=== PATIENT | male | born 1995 | race African-American/Black ===

== ENCOUNTER 2020-01-08 13:40 | Emergency (ER) | payer MEDICAID ==
[2020-01-08] MEDS ORDERED: MORPHINE SULFATE 4 MG INJ IV ONE (14:00)
[2020-01-08] MEDS ORDERED: Zofran 4 MG/2 ML VIAL IV ONE (14:00)
[2020-01-08] MEDS ORDERED: Sodium Chloride 0.9% 1000 ML 1,000 ML IV STA (14:00)
[2020-01-08] MEDS ORDERED: Zofran 4 MG/2 ML VIAL ONE (14:07)
[2020-01-08] MEDS ORDERED: MORPHINE SULFATE 4 MG INJ ONE (14:08)
[2020-01-08] MEDS ORDERED: Sodium Chloride 0.9% 1000 ML 1,000 ML ONE (14:08)
[2020-01-08 15:04] LABS: Basophil (Absolute #) 0 (0-0.4); Eosinophil % 0.3 % (0.00-5.0); Eosinophil (Absolute #) 0.05 (0-0.5); Hemoglobin 16.2 gm/dl (12.5-18.0); Lymphocyte (Absolute #) 0.84 (1.0-4.6); Lymphocytes % 5.3 % (24.0-44.0); Mean Cell Volume 88.3 fl (78-100); Mean Corpuscular Hemoglobin 30.5 pg (26-32); Mean Corpuscular Hgb Concent. 34.5 g/dl (32-36); Mean Platelet Volume 10.8 fl (7.5-11.0); Monocyte (Absolute #) 0.73 (0.0-1.3); Monocytes % 4.6 % (0.0-12.0); Neutrophil % 89.8 % (36.0-66.0); Platelet Count 185 K/mm3 (150-450); Red Blood Count 5.32 M/mm3 (4.1-5.6); Red Cell Distribution Width 12.9 % (11.5-14.0); White Blood Count 15.8 K/mm3 (4.0-10.5)
[2020-01-08 15:10] LABS: Appearance CLEAR (CLEAR); Bilirubin NEGATIVE (NEGATIVE); Blood NEGATIVE Ery/ul (0-5); Glucose NEGATIVE (NEGATIVE); Ketones TRACE (NEGATIVE); Leukocyte Esterase NEGATIVE (NEGATIVE); Mucus SLIGHT /HPF (NEGATIVE); Nitrite NEGATIVE (NEGATIVE); Protein,Urine Dip NEGATIVE (Negative); RBC 0-2 /HPF (0-2); Specific Gravity 1.021 (1.005-1.025); Urobilinogen NEGATIVE mg/dL (0-1)
[2020-01-08 15:14] LABS: ALBUMIN 4.9 g/dL (3.5-5.0); ALKALINE PHOSPHATASE 57 U/L (38-126); AMYLASE 70 U/L (30-110); ANION GAP 18.9 MEQ/L (5-15); BLOOD UREA NITROGEN 12 mg/dL (9-20); CHLORIDE 103 mmol/L (98-107); Calcium 10.3 mg/dL (8.4-10.2); Carbon Dioxide 22 mmol/L (22-30); Glucose 123 mg/dL (74-106); LIPASE 48 U/L (23-300); Potassium 3.9 mmol/L (3.5-5.1); SGOT/AST 30 U/L (17-59); SGPT/ALT 20 U/L (0-50); SODIUM 140 mmol/L (137-145); Total Protein 8.4 g/dL (6.3-8.2)
--- NOTE | 2020-01-08 15:25 | XRAY ---
Indication: Left abdomen pain. Multiple contiguous axial images obtained through the abdomen and pelvis using 80 cc Isovue 370 contrast only. Comparison: None Lung bases are clear. Heart is not enlarged. Initial portal phase images are degraded by respiration and motion artifact. Noncontrasted stomach and bowel loops appear nonobstructed. Mild scattered radiopacities in the stomach and small bowel loops either ingested medication, bismuth, or barium. Normal appendix. No free fluid/air. Remaining liver, gallbladder, pancreas, spleen, adrenal glands, kidneys, ureters, bladder, and aorta appear normal in CT appearance and attenuation. No pathologic retroperitoneal lymphadenopathy. Osseous structures intact. No ventral or inguinal hernias. Impression: Respiration and motion artifact. Negative CT abdomen/pelvis with contrast exam.
[2020-01-08 16:06] VITALS: BP 157/74; PULSE 88; O2SAT 99
--- NOTE | 2020-01-08 16:25 | ERPHSYRPT ---
- History of Present Illness Time Seen by Provider: 01/08/20 14:19 Historian: patient Exam Limitations: no limitations Patient Subjective Stated Complaint: Pain in the LLQ that began today Triage Nursing Assessment: Pt brought to the ER by EMS, pain with palpatation to the mid abdomen, hypertensive, diarrhea, N&V, rates pain as a 1/10 but then pain comes and it's a 7/10, holding abdomen, bowel sounds heard in all 4 quadrants Physician History: 24 years old generally healthy male presented in the ER with chief complaint of sudden onset periumbilical pain almost 2 hours prior to arrival. Patient report he woke up, was feeling nauseated and force himself to take a bowl of cereal and vomited couple of times, nonprojectile, nonbilious with no hematemesis. Later on pain got worse and had 3-4 episodes of loose foul- smelling bowel movements prior to arrival. Patient reports sharp cramping pain more in the periumbilical area with some radiation to bilateral lower quadrants , aggravated with movements palpation and feeling better after EMS gave fentanyl on the way to the ER . Currently pain is 2-3/10 intensity. Denies fever or chills. Denies any sick contact. Patient report he had some chicken strips yesterday which could be the reason for his pain. Timing/Duration: today, hour(s) (2), intermittent, improved Activities at Onset: rest Quality: cramping, sharpness Abdominal Pain Onset Location: RLQ, LLQ, periumbilical Pain Radiation: RLQ, LLQ Severity of Pain-Max: severe Severity of Pain-Current: mild Modifying Factors: Improves With: palpation Associated Symptoms: diarrhea, nausea, vomiting, No fever/chills Previous symptoms: no prior history Allergies/Adverse Reactions: No Known Drug Allergies Allergy (Unverified 01/08/20 13:58) Travel Risk - International Travel Have you traveled outside of the country in past 3 weeks: No Have you or anyone close to you been diagnosed with or: No Do your reside in a community with a known COVID-19 case?: Yes If Yes where:: [place] - Coronavirus Screening Has patient experienced Coronavirus symptoms: No - Review of Systems Constitutional: No Symptoms Eyes: No Symptoms Ears, Nose, & Throat: No Symptoms Respiratory: No Symptoms Cardiac: No Symptoms Abdominal/Gastrointestinal: Abdominal Pain, Nausea, Vomiting, Diarrhea Genitourinary Symptoms: No Symptoms Musculoskeletal: No Symptoms Skin: No Symptoms Neurological: No Symptoms Psychological: No Symptoms Endocrine: No Symptoms Hematologic/Lymphatic: No Symptoms Immunological/Allergic: No Symptoms - Past Medical History Pertinent Past Medical History: No - Past Surgical History Past Surgical History: No - Social History Smoking Status: Current every day smoker Exposure to second hand smoke: Yes Drug Use: marijuana Patient Lives Alone: No - Nursing Vital Signs Nursing Vital Signs: Initial Vital Signs Temperature 98.0 F 01/08/20 13:44 Pulse Rate 62 01/08/20 13:44 Blood Pressure 144/77 01/08/20 13:44 O2 Sat by Pulse Oximetry 100 01/08/20 13:44 Pain Scale Pain Intensity 0 - Physical Exam General Appearance: no apparent distress, alert Eye Exam: eyes nml inspection Ears, Nose, Throat Exam: normal ENT inspection, pharyngeal erythema Neck Exam: normal inspection, supple, full range of motion Respiratory Exam: normal breath sounds, lungs clear, No chest tenderness Cardiovascular Exam: regular rate/rhythm, normal heart sounds Gastrointestinal/Abdomen Exam: normal bowel sounds, tenderness (Periumbilical area, bilateral lower quadrants. No rebound tenderness. Minimal guarding in the periumbilical area deep palpation) Back Exam: normal inspection, normal range of motion Extremity Exam: normal inspection Neurologic Exam: alert, oriented x 3, cooperative Skin Exam: normal color SpO2 Interpretation: normal SpO2: 99 O2 Delivery: Room Air - Course Nursing assessment & vital signs reviewed: Yes Ordered Tests: Active Orders 24 hr Category Date Time Status IV Insertion STAT Care 01/08/20 14:00 Active NPO (ED) STAT Care 01/08/20 14:00 Active ABDOMEN AND PELVIS W CONTRAST [CT] Stat Exams 01/08/20 14:00 Completed AMYLASE Stat Lab 01/08/20 15:00 Completed CBC W DIFF Stat Lab 01/08/20 15:00 Completed CMP Stat Lab 01/08/20 15:00 Completed LIPASE Stat Lab 01/08/20 15:00 Completed UA W/RFX UR CULTURE Stat Lab 01/08/20 15:00 Completed Medication Summary Discontinued Medications Generic Name Dose Route Start Last Admin Trade Name Freq PRN Reason Stop Dose Admin Sodium Chloride 1,000 mls @ 999 mls/hr 01/08/20 14:00 01/08/20 15:11 Sodium Chloride 0.9% 1000 Ml IV 01/08/20 15:00 Infused .Q1H1M STA Infusion Sodium Chloride Confirm 01/08/20 14:08 Sodium Chloride 0.9% 1000 Ml Administered 01/08/20 14:09 Dose 1,000 mls @ ud .ROUTE .STK-MED ONE Morphine Sulfate 4 mg 01/08/20 14:00 01/08/20 14:09 Morphine Sulfate 4 Mg Inj IV 01/08/20 14:01 4 mg STAT ONE Administration Morphine Sulfate Confirm 01/08/20 14:08 Morphine Sulfate 4 Mg Inj Administered 01/08/20 14:09 Dose 4 mg .ROUTE .STK-MED ONE Ondansetron HCl 4 mg 01/08/20 14:00 01/08/20 14:09 Zofran 4 Mg/2 Ml Vial IV 01/08/20 14:01 4 mg STAT ONE Administration Ondansetron HCl Confirm 01/08/20 14:07 Zofran 4 Mg/2 Ml Vial Administered 01/08/20 14:08 Dose 4 mg .ROUTE .STK-MED ONE Lab/Rad Data: Laboratory Result Diagrams 01/08/20 15:00 01/08/20 15:00 Laboratory Results 01/08/20 01/08/20 01/08/20 Range/Units 15:56 15:00 15:00 WBC (4.0-10.5) K/mm3 RBC (4.1-5.6) M/mm3 Hgb (12.5-18.0) gm/dl Hct (42-50) % MCV (78-100) fl MCH (26-32) pg MCHC (32-36) g/dl RDW (11.5-14.0) % Plt Count (150-450) K/mm3 MPV (7.5-11.0) fl Gran % (36.0-66.0) % Eos # (Auto) (0-0.5) Absolute Lymphs (auto) (1.0-4.6) Absolute Monos (auto) (0.0-1.3) Lymphocytes % (24.0-44.0) % Monocytes % (0.0-12.0) % Eosinophils % (0.00-5.0) % Basophils % (0.0-0.4) % Absolute Granulocytes (1.4-6.9) Basophils # (0-0.4) Sodium 140 (137-145) mmol/L Potassium 3.9 (3.5-5.1) mmol/L Chloride 103 (98-107) mmol/L Carbon Dioxide 22 (22-30) mmol/L Anion Gap 18.9 H (5-15) MEQ/L BUN 12 (9-20) mg/dL Creatinine 0.90 (0.66-1.25) mg/dL Estimated GFR > 60.0 ML/MIN Glucose 123 H (74-106) mg/dL Calcium 10.3 H (8.4-10.2) mg/dL Total Bilirubin 0.70 (0.2-1.3) mg/dL AST 30 (17-59) U/L ALT 20 (0-50) U/L Alkaline Phosphatase 57 (38-126) U/L Serum Total Protein 8.4 H (6.3-8.2) g/dL Albumin 4.9 (3.5-5.0) g/dL Amylase 70 (30-110) U/L Lipase 48 (23-300) U/L Urine Color YELLOW (YELLOW) Urine Appearance CLEAR (CLEAR) Urine pH 7.0 (5-6) Ur Specific [place] 1.021 (1.005-1.025) Urine Protein NEGATIVE (Negative) Urine Ketones TRACE (NEGATIVE) Urine Blood NEGATIVE (0-5) Oni/ul Urine Nitrite NEGATIVE (NEGATIVE) Urine Bilirubin NEGATIVE (NEGATIVE) Urine Urobilinogen NEGATIVE (0-1) mg/dL Ur Leukocyte Esterase NEGATIVE (NEGATIVE) Urine WBC (Auto) NONE (0-5) /HPF Urine RBC (Auto) 0-2 (0-2) /HPF U Epithel Cells (Auto) NONE (FEW) /HPF Urine Bacteria (Auto) NONE (NEGATIVE) /HPF Urine Mucus (Auto) SLIGHT (NEGATIVE) /HPF Urine Culture Reflexed NO (NO) Urine Glucose NEGATIVE (NEGATIVE) mg/dL Stl C. cayetanensis PCR NEGATIVE (NEGATIVE) Stl Adenov F 40/41 PCR NEGATIVE (NEGATIVE) Stool Astrovirus (PCR) NEGATIVE (NEGATIVE) Stool Cryptosporidium PCR NEGATIVE (NEGATIVE) Stool EPEC (PCR) NEGATIVE (NEGATIVE) Stool EAEC (PCR) NEGATIVE (NEGATIVE) Stl E. histolytica PCR NEGATIVE (NEGATIVE) Stl P. shigelloides PCR NEGATIVE (NEGATIVE) Stool Sapovirus (PCR) NEGATIVE (NEGATIVE) St Y.enterocolitica PCR NEGATIVE (NEGATIVE) Stool Vibrio (PCR) NEGATIVE (NEGATIVE) Stl Vibrio cholerae PCR NEGATIVE (NEGATIVE) Stl Norovirus GI/GII PCR NEGATIVE (NEGATIVE) Campylobacter (PCR) NEGATIVE (NEGATIVE) C. difficile (PCR) NEGATIVE (NEGATIVE) Enterotoxigenic E. coli NEGATIVE (NEGATIVE) E.coli Shiga Toxins NEGATIVE (NEGATIVE) Giardia lamblia NEGATIVE (NEGATIVE) Rotavirus A (PCR) NEGATIVE (NEGATIVE) Salmonella (PCR) NEGATIVE (NEGATIVE) Shigella (PCR) NEGATIVE (NEGATIVE) 01/08/20 Range/Units 15:00 WBC 15.8 H (4.0-10.5) K/mm3 RBC 5.32 (4.1-5.6) M/mm3 Hgb 16.2 (12.5-18.0) gm/dl Hct 47.0 (42-50) % MCV 88.3 (78-100) fl MCH 30.5 (26-32) pg MCHC 34.5 (32-36) g/dl RDW 12.9 (11.5-14.0) % Plt Count 185 (150-450) K/mm3 MPV 10.8 (7.5-11.0) fl Gran % 89.8 H (36.0-66.0) % Eos # (Auto) 0.05 (0-0.5) Absolute Lymphs (auto) 0.84 L (1.0-4.6) Absolute Monos (auto) 0.73 (0.0-1.3) Lymphocytes % 5.3 L (24.0-44.0) % Monocytes % 4.6 (0.0-12.0) % Eosinophils % 0.3 (0.00-5.0) % Basophils % 0.0 (0.0-0.4) % Absolute Granulocytes 14.20 H (1.4-6.9) Basophils # 0 (0-0.4) Sodium (137-145) mmol/L Potassium (3.5-5.1) mmol/L Chloride (98-107) mmol/L Carbon Dioxide (22-30) mmol/L Anion Gap (5-15) MEQ/L BUN (9-20) mg/dL Creatinine (0.66-1.25) mg/dL Estimated GFR ML/MIN Glucose (74-106) mg/dL Calcium (8.4-10.2) mg/dL Total Bilirubin (0.2-1.3) mg/dL AST (17-59) U/L ALT (0-50) U/L Alkaline Phosphatase (38-126) U/L Serum Total Protein (6.3-8.2) g/dL Albumin (3.5-5.0) g/dL Amylase (30-110) U/L Lipase (23-300) U/L Urine Color (YELLOW) Urine Appearance (CLEAR) Urine pH (5-6) Ur Specific [place] (1.005-1.025) Urine Protein (Negative) Urine Ketones (NEGATIVE) Urine Blood (0-5) Oni/ul Urine Nitrite (NEGATIVE) Urine Bilirubin (NEGATIVE) Urine Urobilinogen (0-1) mg/dL Ur Leukocyte Esterase (NEGATIVE) Urine WBC (Auto) (0-5) /HPF Urine RBC (Auto) (0-2) /HPF U Epithel Cells (Auto) (FEW) /HPF Urine Bacteria (Auto) (NEGATIVE) /HPF Urine Mucus (Auto) (NEGATIVE) /HPF Urine Culture Reflexed (NO) Urine Glucose (NEGATIVE) mg/dL Stl C. cayetanensis PCR (NEGATIVE) Stl Adenov F 40/41 PCR (NEGATIVE) Stool Astrovirus (PCR) (NEGATIVE) Stool Cryptosporidium PCR (NEGATIVE) Stool EPEC (PCR) (NEGATIVE) Stool EAEC (PCR) (NEGATIVE) Stl E. histolytica PCR (NEGATIVE) Stl P. shigelloides PCR (NEGATIVE) Stool Sapovirus (PCR) (NEGATIVE) St Y.enterocolitica PCR (NEGATIVE) Stool Vibrio (PCR) (NEGATIVE) Stl Vibrio cholerae PCR (NEGATIVE) Stl Norovirus GI/GII PCR (NEGATIVE) Campylobacter (PCR) (NEGATIVE) C. difficile (PCR) (NEGATIVE) Enterotoxigenic E. coli (NEGATIVE) E.coli Shiga Toxins (NEGATIVE) Giardia lamblia (NEGATIVE) Rotavirus A (PCR) (NEGATIVE) Salmonella (PCR) (NEGATIVE) Shigella (PCR) (NEGATIVE) - Progress Progress: improved, re-examined Progress Note: 01/08/20 16:23 24 years old is evaluated for abdominal pain with vomiting and diarrhea. Is given symptomatic treatment along with fluids. On reevaluation patient is pain- free. He had an episode of foul-smelling diarrhea while in the ER. Stool sample is sent. White count of 15 with some element of dehydration which I believe is secondary to gastroenteritis related volume contraction. I have obtained CT with contrast which did not show any acute intra-abdominal findings like obstruction, perforation, cholecystitis, pancreatitis, appendicitis or colitis. I believe patient has gastroenteritis probably viral and recommended supportive care with Tylenol as needed for pain and Zofran and plenty of fluids. I do not think patient needs any further work-up in the ER and is stable for discharge with instructions to return in case of worsening which he seems understanding. Counseled pt/family regarding: lab results, diagnosis, need for follow-up, rad results - Departure Departure Disposition: Home Clinical Impression: Acute gastroenteritis Condition: Stable Critical Care Time: No Referrals: DOCTOR,NO FAMILY [Primary Care Provider] - IZA VINES MD [ACTIVE STAFF] - (1-2 days for re evaluation) Instructions: Food Poisoning (DC), Acute Abdomen (Belly Pain), Adult (DC) Additional Instructions: Plenty of fluids. Take Tylenol/Zofran as needed. Follow-up with primary care for reevaluation. Return to ER for intractable abdominal pain, vomiting/ diarrhea/fever chills etc. Prescriptions: Ondansetron HCl [Zofran] 4 mg PO TID PRN #10 tablet PRN Reason: Nausea/Vomiting
[2020-01-08 17:42] LABS: Adenovirus F 40/41 NEGATIVE (NEGATIVE); Astrovirus NEGATIVE (NEGATIVE); C. Difficile Organism NEGATIVE (NEGATIVE); Campylobacter NEGATIVE (NEGATIVE); Cryptosporidium NEGATIVE (NEGATIVE); Cyclospora cayentanensis NEGATIVE (NEGATIVE); Entamoeaba histolytica NEGATIVE (NEGATIVE); Enteroaggregative E.coli NEGATIVE (NEGATIVE); Enteropathogenic E.coli NEGATIVE (NEGATIVE); Enterotoxigenic E.coli NEGATIVE (NEGATIVE); Giardia lamblia NEGATIVE (NEGATIVE); Norovirus GI/GII NEGATIVE (NEGATIVE); Plesiomonas shigelloides NEGATIVE (NEGATIVE); Rotavirus A NEGATIVE (NEGATIVE); Salmonella NEGATIVE (NEGATIVE); Sapovirus NEGATIVE (NEGATIVE); Shiga-like toxin prod.E.coli NEGATIVE (NEGATIVE); Vibrio NEGATIVE (NEGATIVE); Vibrio cholerae NEGATIVE (NEGATIVE); Yersinia enterocolitica NEGATIVE (NEGATIVE)
== END 2020-01-08 16:24 | disposition home or self-care (01) ==
LOC: ED 13:40
DX: A09 Infectious gastroenteritis and colitis, unspecified (principal); R10.32 Left lower quadrant pain
CPT/HCPCS: 36000; 36415; 74177; 80053; 81001; 82150; 83690; 85025; 87507; 96360; 96374; 96375; 99284; J2270; J2405